=== PATIENT | female | born 1975 | race Caucasian/White ===

== ENCOUNTER 2021-08-08 22:48 | Emergency (ER) | payer SELFPAY ==
[2021-08-08 22:59] VITALS: BP 125/75; PULSE 95; RESP 16; TEMP 36.6; O2SAT 95; BMI 28.5
[2021-08-09 00:22] LABS: SARS Covid-2 Antigen Negative (Negative)
[2021-08-09 00:23] LABS: Influenza A by IFA Negative (Negative); Influenza B by IFA Negative (Negative)
--- NOTE | 2021-08-09 01:00 | W.ED.GENADLT ---
HPI - General Adult General: Chief complaint: General Medical Stated complaint: Left Ear\Lower Back\Withdrawls from Zanex Time Seen by Provider: 08/08/21 22:53 History of Present Illness: HPI narrative: Patient is a 46-year-old female comes to the ED with upper respiratory symptoms. Symptoms started approximately 3 days ago. She has nasal drainage and congestion, no sore throat and a dry cough. She also reports having the chills, body aches and a low-grade fever at home. She has been taking Tylenol about every 6 hours today. Patient did say for the past 2 weeks she has been slowly cutting back on her Xanax. She reports that she started off for a week taking half a pill twice a day and this past week she has been taking a quarter of a pill twice a day. Associated symptoms: Deny chest pain, dyspnea, headache(s), nausea, rash, palpitations or vomiting Review of Systems Const: Reports: fever(s), chills and body aches; Denies: fatigue Eyes: Denies: change in vision or eye discomfort ENMT: Reports: throat pain, nasal discharge and nasal congestion; Denies: odynophagia, ear or mastoid pain or ear discharge Card: Denies: chest pain, palpitations, edema, swelling of feet/ankles, dyspnea on exertion or orthopnea Resp: Reports: non-productive cough; Denies: dyspnea or productive cough GI: Denies: abdominal pain, nausea, vomiting, diarrhea, constipation or hematochezia : Denies: flank pain, dysuria or hematuria Musc: Denies: neck pain, back pain or extremity swelling Skin/Breast: Denies: rash or new lesions Neuro: Denies: headache(s), numbness in extremities or weakness in extremities Physical Exam Const: COMMON NORMALS: no acute distress, patient oriented x3, healthy appearing and alert GENERAL APPEARANCE: cooperative and comfortable HENMT: COMMON NORMALS: normocephalic, EAC's normal and TM's normal bilaterally HEAD & SCALP: normocephalic EXTERNAL AUDITORY CANAL: EAC's normal TYMPANIC MEMBRANE: TM's normal bilaterally MOUTH: Normal oral and palatal mucosa present THROAT: posterior oropharynx normal and uvula midline Eye: COMMON NORMALS: Equal, round and reactive pupils present and conjunctivae normal CONJUNCTIVA: Yes conjunctivae normal PUPIL: Yes Equal, round and reactive pupils present Neck/C-Spine: COMMON NORMALS: supple GENERAL: Yes normal visual inspection Resp: COMMON NORMALS: normal respiratory effort, No retractions, No use of accessory muscles and clear to auscultation bilaterally EFFORT & INSPECTION: Yes able to speak in complete sentences, No tachypneic, No respiratory distress and No labored AUSCULTATION: clear to auscultation bilaterally Cardio: COMMON NORMALS: regular rate, regular rhythm, S1 normal heart sound present, S2 normal heart sound present, No gallops present (Cardio), No clicks present (Cardio), No murmurs present (Cardio) and Peripheral pulses 2+ throughout RATE: regular rate RHYTHM: regular rhythm HEART SOUNDS: S1 normal heart sound present and S2 normal heart sound present PERIPHERAL PULSES: Peripheral pulses 2+ throughout GI: COMMON NORMALS: Normal to inspection, nondistended, normoactive bowel sounds present, Soft to palpation, non-tender and no masses PALPATION: Yes Soft to palpation : COMMON NORMALS: Yes no CVA tenderness BLADDER/KIDNEY EXAM: Yes no CVA tenderness Back/Pelvis: COMMON NORMALS: no CVA tenderness Extremity: COMMON NORMALS: normal to inspection Neuro: COMMON NORMALS: patient oriented x3 and moves all extremities SENSORIUM/ORIENTATION: Yes alert Skin: GENERAL SKIN EXAM: dry skin Course Vital Signs: Vital signs: Vital Signs Temperature 98 F 08/08/21 22:59 Pulse Rate 95 08/08/21 22:59 Respiratory Rate 16 08/09/21 02:41 Blood Pressure 116/70 08/09/21 02:41 Pulse Oximetry 94 08/09/21 02:41 MDM - General Adult MDM Narrative: Medical decision making narrative: Patient is a 38-year-old female comes to the ED with upper respiratory symptoms. Patient is having body aches, sore throat, nasal drainage/congestion and cough. Symptoms started 3 days ago. Vital stable. Exam of patient is benign. Rapid strep negative, influenza negative, rapid Covid negative. Chest x-ray showed no acute infiltrates or pneumonia. Patient was diagnosed with upper respiratory infection with cough and congestion. She was discharged home with a Z-Peter. She was told to follow-up with her PCP in 7 to 10 days for reevaluation. Return to ED precautions given. Patient understood and agreed with plan. Lab Data: Attestation: I reviewed the patient's lab results. Labs: Lab Results 08/08/21 08/08/21 08/08/21 01:03 23:45 23:45 Urine Color Yellow (Yellow) Urine Appearance Clear (CLEAR) Urine pH 5 (5-7) Ur Specific Gravit y 1.020 (1.005-1.030) Urine Protein Neg (Negative) Urine Glucose (UA) Norm (Normal) Urine Ketones Negative (Negative) Urine Blood Neg (Negative) Urine Nitrate Negative (Negative) Urine Bilirubin Neg (Negative) Urine Urobilinogen Neg mg/dL mg/dL (Negative) Ur Leukocyte Gali ase Negative (Negative) Influenza Type A A g Negative (Negative) Influenza Type B A g Negative (Negative) SARS-CoV-2 Ag (Rap id) Negative (Negative) Group A Strep Rapi d 08/09/21 01:40 Urine Color Urine Appearance Urine pH Ur Specific Gravit y Urine Protein Urine Glucose (UA) Urine Ketones Urine Blood Urine Nitrate Urine Bilirubin Urine Urobilinogen Ur Leukocyte Gali ase Influenza Type A A g Influenza Type B A g SARS-CoV-2 Ag (Rap id) Group A Strep Rapi d Negative (Negative) Imaging Data^: CXR: Attestation: I personally reviewed and interpreted this imaging study as follows: My impression: Chest x-ray?no infiltrates or pneumonia seen?pending radiology report. Discharge Plan Discharge Patient Disposition: Home Clinical Impression: Upper respiratory infection with cough and congestion Condition: Stable Prescriptions: New azithromycin 250 mg tablet See Rx Instructions .ROUTE .COMPLEX Qty: 6 RF: 0 Discharge Orders: Discharge ED (Routine); Ordered 08/09/21 Ordered By: Denzel Gorman Discharge Diet: Regular Discharge Activity: Increase activity as tolerated Patient Instructions: Upper Respiratory Infection (DC), Viral Syndrome (ED) Activity Restrictions/Additional Instructions: Follow-up with medical provider as directed in 7 to 10 days for reevaluation. Drink plenty of fluids and stay hydrated. Take medication as prescribed. Take [id number] Tylenol or Motrin for any fevers. Return to the ER or your medical provider if condition worsens. Please read and understand discharge instructions. Thank you for choosing [facility] for your healthcare needs today. Please realize this is an emergency room and that we are providing you with a medical screening exam and this may not be complete and all inclusive of all the testing and or work up that you may need to determine your ailment or severity of your illness. It is very important that you follow up as instructed or that you return to the Emergency Department should you have concerns or if your condition changes or worsens in any way. 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
--- NOTE | 2021-08-09 01:19 | XRR_ITS ---
PROCEDURE INFORMATION: Exam: XR Chest Exam date and time: 08/09/2021 1:19 AM Age: 46 years old Clinical indication: Cough and fever; Additional info: Cough, fever TECHNIQUE: Imaging protocol: XR of the chest. Views: 1 view. COMPARISON: No relevant prior studies available. FINDINGS: Lungs: The right lung is clear. Mild patchy atelectasis at the left lung base. Pulmonary vasculature within normal limits. Pleural space: No visible pneumothorax or pleural effusion. Heart/Mediastinum: Cardiomediastinal silhouette contour within normal limits. Bones/joints: No emergent findings identified. XR/XR chest 1V portable [id number] IMPRESSION: 1. No radiographic findings of acute cardiopulmonary disease.
[2021-08-09 01:39] LABS: Add Urine Microscopic? NO; Charge for UA Resulting for Rev
[2021-08-09 01:40] LABS: Bilirubin Urine Neg (Negative); Blood Urine Neg (Negative); Glucose Urine UA Norm (Normal); Ketones Urine Negative (Negative); Leukocyte Esterase Urine Negative (Negative); Nitrate Urine Negative (Negative); Protein Urine Neg (Negative); Urine Appearance Clear (CLEAR); Urine Color Yellow (Yellow); Urobilinogen Urine Neg (Negative); pH Urine 5 (5-7)
[2021-08-09 01:52] LABS: Rapid Strep A Test Negative (Negative)
[2021-08-09 02:03] VITALS: BP 116/70; RESP 16; O2SAT 94
[2021-08-09 02:41] VITALS: BP 116/70; RESP 16; O2SAT 94
== END 2021-08-09 02:40 | disposition home or self-care (01) ==
PROVIDERS: Emergency Medicine; Emergency Provider Physician Assistant
DX: J06.9 Acute upper respiratory infection, unspecified (principal); Z20.822 Contact with and (suspected) exposure to COVID-19
CPT/HCPCS: 71045; 81003; 87081; 87426; 87804; 87880; 99283